=== PATIENT | male | born 1970 | race Caucasian/White ===

== ENCOUNTER 2017-04-10 07:04 | Emergency (ER) | payer OTHER ==
[~2017-04-10] VITALS: Ht 167.6 cm; Wt 59.0 kg
[~2017-04-10 07:04] MED LIST: KEPPRA 500 MG500 M1 PO
== END 2017-04-10 07:52 | disposition home or self-care (01) ==
LOC: ER 07:04
DX: F41.9 Anxiety disorder, unspecified (principal); F19.10 Other psychoactive substance abuse, uncomplicated